=== PATIENT | male | born 1975 ===

== ENCOUNTER 2018-01-14 15:39 | Inpatient (IN) | payer OTHER ==
[2018-01-14] MEDS ORDERED: Magnesium Sulfate 2 gm/50 ml 2 GM/50 ML BAG ONE (16:02)
[2018-01-14] MEDS ORDERED: Magnesium Sulfate 2 gm/50 ml 2 GM/50 ML BAG IVPB ONE (16:23)
[2018-01-14] MEDS: Sodium Chloride 0.9% 1,000 ML IV SCH ×6 (16:30→18:44)
[2018-01-14 16:41] LABS: BASO # 0.1 K/uL (0.0-0.2); BASO % 0.8 % (0.0-2.0); EOS # 0.3 K/uL (0.0-0.7); EOS % 1.8 % (0.0-4.0); HEMOGLOBIN 14.9 g/dL (12.0-18.0); LYMPH # 2.9 K/uL (1.0-4.3); LYMPH % 20.4 % (20.0-40.0); MEAN CORPUSCULAR HEMOGLOBIN 29.8 pg (27.0-31.0); MEAN CORPUSCULAR HGB CONC 33.2 g/dL (33.0-37.0); MEAN PLATELET VOLUME 8.9 fl (7.2-11.7); MONO # 0.8 K/uL (0.0-0.8); MONO % 5.8 % (0.0-10.0); NEUT % 71.2 % (50.0-75.0); NRBC % 0.1 % (0.0-0.0); RED CELL DISTRIBUTION WIDTH 15.8 % (11.5-14.5)
--- NOTE | 2018-01-14 16:59 | ED PDOC ---
HPI: General Adult Time Seen by Provider: 01/14/18 16:39 Chief Complaint (Nursing): Palpitations Additional Complaint(s): 42 y/o M c PMHx HTN, DM p/w palpitations since last night. Patient states he feels nervous. He denies fever, chest pain, or dyspnea. He states he has had similar symptoms in the past and would typically take his HTN medication Losartan and it would resolve but it has happened 3 times since last night. Denies leg swelling, fever, abdominal pain, recent travel. Past Medical History Vital Signs: Last Vital Signs Temp 98.3 F 01/14/18 15:40 Pulse 83 01/14/18 16:43 Resp 16 01/14/18 16:43 BP 96/67 L 01/14/18 16:43 Pulse Ox 100 01/14/18 17:02 - Medical History PMH: Anxiety, Cardiac Aneurysm - Family History Family History: States: No Known Family Hx - Immunization History Hx Tetanus Toxoid Vaccination: No Hx Influenza Vaccination: No Hx Pneumococcal Vaccination: No - Home Medications Home Medications: Ambulatory Orders Medication Instructions Recorded Aspirin [Adult Low Dose Aspirin EC] 81 mg PO DAILY 01/14/18 Glimepiride [amaRYL] 4 mg PO DAILY 01/14/18 Levothyroxine Sodium [Unithroid] 25 mcg PO DAILY 01/14/18 Losartan/Hydrochlorothiazide 1 tab PO DAILY 01/14/18 [Losartan-Hctz 50-12.5 mg Tab] Metformin HCl [Glucophage] 500 mg PO BID 01/14/18 - Allergies Allergies/Adverse Reactions: Allergies Allergy/AdvReac Type Severity Reaction Status Date / Time No Known Allergies Allergy Verified 01/14/18 15:40 Review of Systems ROS Statement: Except As Marked, All Systems Reviewed And Found Negative Constitutional: Negative for: Fever Cardiovascular: Negative for: Chest Pain Physical Exam - Physical Exam Comments: Gen: NAD head: NC/AT Eyes: PERRL ENT: MMM Neck: Supple Chest: No deformity CV: Tachycardic Lungs: CTA b/l Abd: Soft, NT Extremities: No edema Back: No CVA tenderness Skin: No rash Neuro: Alert, no focal deficit - Laboratory Results Result Diagrams: 01/14/18 16:17 01/14/18 16:17 - ECG O2 Sat by Pulse Oximetry: 100 Medical Decision Making Medical Decision Making: EKG SVT 192 bpm, nonspecific ST/T wave changes Adenosine administered, 6, 12, and 12 without any response Cardizem administered 10, which brought rate from 200 to 175, additional 15mg administered, converted to sinus rhythm EKG NSR, regular rate, no ST elevations Started on drip 10mg/hr. Dr. Smart accepts patient to hospitalist service. Disposition - Clinical Impression Clinical Impression: Supraventricular tachycardia - Patient ED Disposition Is Patient to be Admitted: Yes - Disposition Disposition Time: 18:13 Condition: GUARDED Forms: [facility] ([place])
[2018-01-14 17:51] LABS: ALB/GLOB RATIO 1.1 (1.0-2.1); ALBUMIN 4.3 g/dL (3.5-5.0); CALCIUM 8.9 mg/dL (8.4-10.2)
[2018-01-14 18:01] LABS: CK-MB 1.56 ng/mL (0.0-3.38); TROPONIN I 0.072 ng/mL (0.00-0.120)
--- NOTE | 2018-01-14 18:52 | CP.PCM.HP ---
History of Present Illness - History of Present Illness History of Present Illness: 42 yo male with history of HTN and DM2 came in because of palpitation associated with generalized weakness and with throat feeling dry. Denied chest pain, dizziness or SOB. He claimed he had the same episode last night which resolved after about 10 minutes after taking ASA and Losartan. He was admitted 3 yrs ago at [facility] wherein the rapid heart rate was accompanied with confusion but no LOC. After 3 days, he was sent home with Losartan and ASA. As per patient, the only findings after cardiac work ups was HTN. Present on Admission - Present on Admission Any Indicators Present on Admission: No History of DVT/PE: No History of Uncontrolled Diabetes: No Urinary Catheter: No Decubitus Ulcer Present: No Review of Systems - Review of Systems All systems: reviewed and no additional remarkable complaints except (aside from those mentioned above, 12 point system review were negative by me) Past Patient History - Past Medical History & Family History Pertinent Family History: father has HTN mother has DM2 - Past Social History Smoking Status: Light Smoker < 10 Cigarettes Daily Alcohol: < 2 Drinks/Day Drugs: Denies Home Situation {Lives}: With Family - CARDIAC Hx Cardia Arrhythmia: Yes (admitted at [facility] 3 yrs ago because of tachyarrhtymia) Hx Hypertension: Yes - PULMONARY Hx Respiratory Disorders: No - NEUROLOGICAL Hx Neurological Disorder: No - HEENT Hx HEENT Problems: No - RENAL Hx Chronic Kidney Disease: No - ENDOCRINE/METABOLIC Hx Diabetes Mellitus Type 2: Yes - HEMATOLOGICAL/ONCOLOGICAL Hx Blood Disorders: No - INTEGUMENTARY Hx Dermatological Problems: No - MUSCULOSKELETAL/RHEUMATOLOGICAL Hx Musculoskeletal Disorders: No - GASTROINTESTINAL Hx Gastrointestinal Disorders: No - GENITOURINARY/GYNECOLOGICAL Hx Genitourinary Disorders: No - PSYCHIATRIC Hx Anxiety: Yes - SURGICAL HISTORY Hx Surgeries: No - ANESTHESIA Hx Anesthesia: No Meds Allergies/Adverse Reactions: Allergies Allergy/AdvReac Type Severity Reaction Status Date / Time No Known Allergies Allergy Verified 01/14/18 15:40 Physical Exam - Constitutional Appears: No Acute Distress - Head Exam Head Exam: ATRAUMATIC - Eye Exam Eye Exam: absent: Scleral icterus - ENT Exam ENT Exam: Mucous Membranes Moist - Neck Exam Neck exam: Negative for: Meningismus - Respiratory Exam Respiratory Exam: absent: Rales, Rhonchi, Wheezes, Respiratory Distress - Cardiovascular Exam Cardiovascular Exam: REGULAR RHYTHM, +S1, +S2 - GI/Abdominal Exam GI & Abdominal Exam: Soft. absent: Tenderness - Rectal Exam Rectal Exam: Deferred - Extremities Exam Extremities exam: Negative for: calf tenderness, pedal edema - Back Exam Back exam: absent: tenderness - Neurological Exam Neurological exam: Alert, Oriented x3 - Psychiatric Exam Psychiatric exam: Anxious - Skin Skin Exam: Dry, Intact, Pallor Results - Vital Signs Recent Vital Signs: Last Vital Signs Temp 98.3 F 01/14/18 15:40 Pulse 86 01/14/18 18:22 Resp 20 01/14/18 18:22 BP 113/78 01/14/18 18:22 Pulse Ox 100 01/14/18 18:22 - Labs Result Diagrams: 01/14/18 16:17 01/14/18 16:17 Labs: Laboratory Results - last 24 hr 01/14/18 01/14/18 16:17 16:17 WBC 14.0 H RBC 5.00 Hgb 14.9 Hct 45.0 MCV 90.0 MCH 29.8 MCHC 33.2 RDW 15.8 H Plt Count 243 MPV 8.9 Neut % (Auto) 71.2 Lymph % (Auto) 20.4 [place] % (Auto) 5.8 Eos % (Auto) 1.8 Baso % (Auto) 0.8 Neut # (Auto) 10.0 H Lymph # (Auto) 2.9 [place] # (Auto) 0.8 Eos # (Auto) 0.3 Baso # (Auto) 0.1 Sodium 134 Potassium 4.2 Chloride 93 L Carbon Dioxide 21 L Anion Gap 24 H BUN 39 H Creatinine 1.9 H Est GFR ( Amer) 48 Est GFR (Non-Af Amer) 39 Random Glucose 358 H Calcium 8.9 Total Bilirubin 1.6 H AST 78 H ALT 95 H Alkaline Phosphatase 123 Total Creatine Kinase 134 CK-MB (Mass) 1.56 Troponin I 0.0720 NT-Pro-B Natriuret Pep 3030 H Total Protein 8.1 Albumin 4.3 Globulin 3.8 Albumin/Globulin Ratio 1.1 Assessment & Plan - Assessment and Plan (Free Text) Assessment: 42 yo male with history of HTN and DM2 came in because of palpitation associated with generalized weakness and with throat feeling dry. Denied chest pain, dizziness or SOB. He claimed he had the same episode last night which resolved after about 10 minutes after taking ASA and Losartan. He was admitted 3 yrs ago at [facility] wherein the rapid heart rate was accompanied with confusion but no LOC. After 3 days, he was sent home with Losartan and ASA. As per patient, the only findings after cardiac work ups was HTN. 1. SVT continue Cardizem drip at present rate ECHO repeat proBNP cardiology consult with Dr Ramírez 2. Elevated LFTs repeat LFTs in am 3. Renal Insufficiency maybe secondary to dehydration continue IV hydration with NSS 150cc/hr drug screen 4. DM2 BS uncontrolled accuchek ACHS with low Lispro coverage hold Metformin (renal insufficiency) and Amaryl (elevated LFTs) HgA1C, BMP in am 5. HTN BP stable hold Losartan 6. Hypothyroidism TSH in am hold Levothyroxine
[2018-01-14] MEDS: Insulin Lispro (humaLOG) 100 Units/ml Inj SC SCH (23:43)
[2018-01-15 07:42] LABS: BASO # 0.1 K/uL (0.0-0.2); EOS # 0.2 K/uL (0.0-0.7); EOS % 2.1 % (0.0-4.0); HEMOGLOBIN 12.7 g/dL (12.0-18.0); LYMPH # 1.8 K/uL (1.0-4.3); LYMPH % 24.8 % (20.0-40.0); MEAN CELL VOLUME 89.7 fl (80.0-94.0); MEAN CORPUSCULAR HEMOGLOBIN 30.2 pg (27.0-31.0); MEAN CORPUSCULAR HGB CONC 33.7 g/dL (33.0-37.0); MONO # 0.7 K/uL (0.0-0.8); NEUT # 4.6 K/uL (1.8-7.0); NEUT % 63.1 % (50.0-75.0); NRBC % 0.1 % (0.0-0.0); RBC 4.22 Mil/uL (4.40-5.90); RED CELL DISTRIBUTION WIDTH 15.4 % (11.5-14.5); WHITE BLOOD COUNT 7.4 K/uL (4.8-10.8)
[2018-01-15] MEDS: Insulin Lispro (humaLOG) 100 Units/ml Inj SC SCH ×2 (08:25→12:16)
[2018-01-15 08:27] LABS: ALBUMIN 3.5 g/dL (3.5-5.0); BILIRUBIN,DIRECT 0.4 mg/ml (0.0-0.4)
[2018-01-15] MEDS ORDERED: Pantoprazole 40 mg EC Tab PO SCH (09:00)
--- NOTE | 2018-01-15 09:36 | CARD ---
APPROVED REPORT EKG Measurement Heart [id number] <Conclusion> Normal sinus rhythm Nonspecific ST and T wave abnormality Abnormal ECG
--- NOTE | 2018-01-15 09:51 | CARD ---
APPROVED REPORT EKG Measurement Heart [id number] <Conclusion> Supraventricular tachycardia ST & T wave abnormality, consider inferior ischemia Abnormal ECG
--- NOTE | 2018-01-15 10:33 | CP.PCM.CON ---
History of Present Illness - History of Present Illness History of Present Illness: This 42-year-old man, a hypertensive with a history of glucose intolerance and hypothyroidism came to the hospital when extremely rapid heartbeat was detected on his home blood pressure monitoring device. Patient admits that he felt some palpitations at this point but no lightheadedness or sudden shortness of breath is reported. The patient gives history of having had an elevated heart rate recorded the night before as well in the range of 150 bpm but he also says that he was able to go to sleep that night and neck small in when a similar reading was recorded he visited the urgent care center and was sent to the emergency room. He admits to smoking one to 2 cigarettes a week. He has excellent effort tolerance and has never suffered myocardial infarction or chest pain or symptoms of heart failure. He gives history of a similar episode 4 years back when he visited an emergency room and was treated for fast heart beat. There have not been any episodes of lightheadedness or syncope or near syncope in the past. The patient denies any recreational drug use. Physical examination shows a young man who is alert awake weren't afebrile and telemetry shows a steady sinus rhythm at a rate of 74-90 bpm. His blood pressure was 138/88 mmHg. His jugular venous pressure was not elevated and there was no edema hour his lower extremity. The pedal pulses are well felt. There were no carotid bruits. The first and second heart sounds were normal. There was no murmur or gallop there were no rales. His abdomen was soft liver and spleen are not palpable. His electrocardiogram at admission showed evidence of supraventricular tachycardia which subsequent electro-cardiogram shows a return to sinus rhythm with nonspecific ST changes. During his period of tachycardia that are ST-T abnormalities which are resolved upon resumption of sinus rhythm. His lab tests show elevated BUN/creatinine on arrival in the emergency room. His potassium was normal. Impression: Supraventricular tachycardia in a patient who has had a similar episode 4 years back. This most likely represents a concealed conduction pathway. I have recommended that he start taking a beta olga to see if his arrhythmia is controlled at the same time as his blood pressure is managed. I have informed him that an option of ablation procedure exists if he requires it. His repeat lab tests should be checked to see if his azotemia has resolved with return to sinus rhythm. Once that happens she will be allowed to return home and be managed as an outpatient. Elevated troponin her present response to severe tachycardia. The patient has been taking aspirin on a regular basis which he should continue. Past Patient History - Past Medical History & Family History Past Medical History?: Yes - Past Social History Smoking Status: Light Smoker < 10 Cigarettes Daily - CARDIAC Hx Cardiac Disorders: Yes Hx Atrial Fibrillation: Yes Hx Hypertension: Yes - PULMONARY Hx Respiratory Disorders: No - NEUROLOGICAL Hx Neurological Disorder: No - HEENT Hx HEENT Problems: No - RENAL Hx Chronic Kidney Disease: Yes - ENDOCRINE/METABOLIC Hx Endocrine Disorders: Yes Hx Diabetes Mellitus Type 2: Yes - HEMATOLOGICAL/ONCOLOGICAL Hx Blood Disorders: No Hx AIDS: No Hx Human Immunodeficiency Virus (HIV): No - INTEGUMENTARY Hx Dermatological Problems: No - MUSCULOSKELETAL/RHEUMATOLOGICAL Hx Musculoskeletal Disorders: No Hx Falls: No - GASTROINTESTINAL Hx Gastrointestinal Disorders: No - GENITOURINARY/GYNECOLOGICAL Hx Genitourinary Disorders: No - PSYCHIATRIC Hx Psychophysiologic Disorder: Yes Hx Anxiety: Yes Hx Substance Use: No - SURGICAL HISTORY Hx Surgeries: No - ANESTHESIA Hx Anesthesia: No Hx Anesthesia Reactions: No Meds Allergies/Adverse Reactions: Allergies Allergy/AdvReac Type Severity Reaction Status Date / Time No Known Allergies Allergy Verified 01/14/18 15:40 - Medications Medications: Current Medications Aspirin (Ecotrin) 81 mg PO DAILY [facility] Last Admin: 01/15/18 08:25 Dose: 81 mg Atorvastatin Calcium (Lipitor) 20 mg PO HS [facility] Sodium Chloride (Sodium Chloride 0.9%) 1,000 mls @ 1,000 mls/hr IV .Q1H [facility] Stop: 01/15/18 16:23 Last Admin: 01/14/18 18:44 Dose: Not Given Sodium Chloride (Sodium Chloride 0.9%) 1,000 mls @ 1,000 mls/hr IV .Q1H [facility] Stop: 01/15/18 16:23 Last Admin: 01/14/18 18:43 Dose: Not Given Insulin Human Lispro (Humalog) 0 units SC ACHS [facility] PRN Reason: Protocol Last Admin: 01/15/18 08:25 Dose: 2 units Insulin Human Lispro (Humalog) 2 units SC AC [facility] Metoprolol Tartrate (Lopressor) 25 mg PO Q12 [facility] Pantoprazole Sodium (Protonix Ec Tab) 40 mg PO DAILY [facility] Last Admin: 01/15/18 08:25 Dose: 40 mg Results - Vital Signs Recent Vital Signs: Last Vital Signs Temp 98.3 F 01/15/18 08:00 Pulse 79 01/15/18 08:00 Resp 18 01/15/18 08:00 BP 118/78 01/15/18 08:00 Pulse Ox 100 01/15/18 08:00 - Labs Result Diagrams: 01/15/18 06:45 01/14/18 16:17 Labs: Laboratory Results - last 24 hr 01/14/18 01/14/18 01/14/18 16:17 16:17 16:43 WBC 14.0 H RBC 5.00 Hgb 14.9 Hct 45.0 MCV 90.0 MCH 29.8 MCHC 33.2 RDW 15.8 H Plt Count 243 MPV 8.9 Neut % (Auto) 71.2 Lymph % (Auto) 20.4 [place] % (Auto) 5.8 Eos % (Auto) 1.8 Baso % (Auto) 0.8 Neut # (Auto) 10.0 H Lymph # (Auto) 2.9 [place] # (Auto) 0.8 Eos # (Auto) 0.3 Baso # (Auto) 0.1 APTT Sodium 134 Potassium 4.2 Chloride 93 L Carbon Dioxide 21 L Anion Gap 24 H BUN 39 H Creatinine 1.9 H Est GFR ( Amer) 48 Est GFR (Non-Af Amer) 39 POC Glucose (mg/dL) Random Glucose 358 H Calcium 8.9 Phosphorus 3.9 Magnesium 1.9 Total Bilirubin 1.6 H Direct Bilirubin AST 78 H ALT 95 H Alkaline Phosphatase 123 Total Creatine Kinase 134 CK-MB (Mass) 1.56 Troponin I 0.0720 NT-Pro-B Natriuret Pep 3030 H Total Protein 8.1 Albumin 4.3 Globulin 3.8 Albumin/Globulin Ratio 1.1 TSH 3rd Generation 01/14/18 01/15/18 01/15/18 21:51 05:19 06:45 WBC 7.4 RBC 4.22 L Hgb 12.7 D Hct 37.9 MCV 89.7 MCH 30.2 MCHC 33.7 RDW 15.4 H Plt Count 151 MPV 9.0 Neut % (Auto) 63.1 Lymph % (Auto) 24.8 [place] % (Auto) 9.0 Eos % (Auto) 2.1 Baso % (Auto) 1.0 Neut # (Auto) 4.6 Lymph # (Auto) 1.8 [place] # (Auto) 0.7 Eos # (Auto) 0.2 Baso # (Auto) 0.1 APTT Sodium Potassium Chloride Carbon Dioxide Anion Gap BUN Creatinine Est GFR ( Amer) Est GFR (Non-Af Amer) POC Glucose (mg/dL) 241 H 222 H Random Glucose Calcium Phosphorus Magnesium Total Bilirubin Direct Bilirubin AST ALT Alkaline Phosphatase Total Creatine Kinase CK-MB (Mass) Troponin I NT-Pro-B Natriuret Pep Total Protein Albumin Globulin Albumin/Globulin Ratio TSH 3rd Generation 01/15/18 01/15/18 01/15/18 06:45 07:35 08:30 WBC RBC Hgb Hct MCV MCH MCHC RDW Plt Count MPV Neut % (Auto) Lymph % (Auto) [place] % (Auto) Eos % (Auto) Baso % (Auto) Neut # (Auto) Lymph # (Auto) [place] # (Auto) Eos # (Auto) Baso # (Auto) APTT 32.3 Sodium Potassium Chloride Carbon Dioxide Anion Gap BUN Creatinine Est GFR ( Amer) Est GFR (Non-Af Amer) POC Glucose (mg/dL) Random Glucose Calcium Phosphorus Magnesium Total Bilirubin 1.3 Direct Bilirubin 0.4 AST 57 ALT 79 H Alkaline Phosphatase 84 Total Creatine Kinase CK-MB (Mass) Troponin I 0.1990 H* NT-Pro-B Natriuret Pep Total Protein 7.0 Albumin 3.5 Globulin 3.5 Albumin/Globulin Ratio 1.0 [facility] 3rd Generation 1.87
[2018-01-15 11:00] LABS: ALBUMIN 4.1 g/dL (3.5-5.0); ALT/SGPT 87 U/L (21-72); AST/SGOT 69 U/L (17-59); BLOOD UREA NITROGEN 29 mg/dl (9-20); CALCIUM 8.8 mg/dL (8.4-10.2); GFR AFRICAN-AMERICAN > 60; GFR NON-AFRICAN AMERICAN > 60; HDL CHOLESTEROL 44 MG/DL (30-70)
[2018-01-15 11:04] LABS: LDL CHOLESTEROL 96 mg/dL (0-129)
[2018-01-15] MEDS ORDERED: GlipiZIDE 10 mg SR Tab PO SCH (11:30)
[2018-01-15] MEDS ORDERED: Insulin Lispro (humaLOG) 100 Units/ml Inj SC SCH (11:30)
--- NOTE | 2018-01-15 11:34 | RAD ---
HISTORY: palpitations COMPARISON: No prior. FINDINGS: LUNGS: No active pulmonary disease. PLEURA: No significant pleural effusion identified, no pneumothorax apparent. CARDIOVASCULAR: Normal. OSSEOUS STRUCTURES: No significant abnormalities. VISUALIZED UPPER ABDOMEN: Normal. OTHER FINDINGS: None. IMPRESSION: No active disease.
[2018-01-15 12:13] VITALS: O2SAT 98
[2018-01-15 16:10] VITALS: BP 131/90; PULSE 80; RESP 20; TEMP 97.5
--- NOTE | 2018-01-15 16:36 | CP.PCM.DIS ---
Provider - Provider Date of Admission: 01/14/18 18:08 Attending physician: Parrish Zuñiga MD Consults: Dr Roberts Time Spent in preparation of Discharge (in minutes): 25 Diagnosis - Discharge Diagnosis (1) Supraventricular tachycardia Status: Acute Comment: continue Metoprolol 25mg PO BID instead of Lozartan/HCTZ (2) Elevated LFTs Status: Acute Comment: resolved after rhythm converted to normal sinus (3) Renal insufficiency Status: Acute Comment: resolved after rhythm converted to normal sinus (4) DM2 (diabetes mellitus, type 2) Status: Chronic Comment: resume Amaryl and Metformin (5) HTN (hypertension) Status: Chronic Comment: BP stable. continue Metoprolol 25mg PO BID Hospital Course - Lab Results Lab Results: Most Recent Lab Values WBC 7.4 K/uL (4.8-10.8) 01/15/18 06:45 RBC 4.22 Mil/uL (4.40-5.90) L 01/15/18 06:45 Hgb 12.7 g/dL (12.0-18.0) D 01/15/18 06:45 Hct 37.9 % (35.0-51.0) 01/15/18 06:45 MCV 89.7 fl (80.0-94.0) 01/15/18 06:45 MCH 30.2 pg (27.0-31.0) 01/15/18 06:45 MCHC 33.7 g/dL (33.0-37.0) 01/15/18 06:45 RDW 15.4 % (11.5-14.5) H 01/15/18 06:45 Plt Count 151 K/uL (130-400) 01/15/18 06:45 MPV 9.0 fl (7.2-11.7) 01/15/18 06:45 Neut % (Auto) 63.1 % (50.0-75.0) 01/15/18 06:45 Lymph % (Auto) 24.8 % (20.0-40.0) 01/15/18 06:45 [place] % (Auto) 9.0 % (0.0-10.0) 01/15/18 06:45 Eos % (Auto) 2.1 % (0.0-4.0) 01/15/18 06:45 Baso % (Auto) 1.0 % (0.0-2.0) 01/15/18 06:45 Neut # (Auto) 4.6 K/uL (1.8-7.0) 01/15/18 06:45 Lymph # (Auto) 1.8 K/uL (1.0-4.3) 01/15/18 06:45 [place] # (Auto) 0.7 K/uL (0.0-0.8) 01/15/18 06:45 Eos # (Auto) 0.2 K/uL (0.0-0.7) 01/15/18 06:45 Baso # (Auto) 0.1 K/uL (0.0-0.2) 01/15/18 06:45 APTT 32.3 Seconds (25.6-37.1) 01/15/18 07:35 Sodium 138 mmol/l (132-148) 01/15/18 10:30 Potassium 4.1 MMOL/L (3.6-5.0) 01/15/18 10:30 Chloride 97 mmol/L (98-107) L 01/15/18 10:30 Carbon Dioxide 22 mmol/L (22-30) 01/15/18 10:30 Anion Gap 23 (10-20) H 01/15/18 10:30 BUN 29 mg/dl (9-20) H 01/15/18 10:30 Creatinine 1.1 mg/dl (0.8-1.5) 01/15/18 10:30 Est GFR ( Amer) > 60 01/15/18 10:30 Est GFR (Non-Af Amer) > 60 01/15/18 10:30 POC Glucose (mg/dL) 325 mg/dL (65-110) H 01/15/18 11:03 Random Glucose 199 mg/dL (75-110) H 01/15/18 10:30 Calcium 8.8 mg/dL (8.4-10.2) 01/15/18 10:30 Phosphorus 3.9 mg/dl (2.5-4.5) 01/14/18 16:43 Magnesium 1.9 MG/DL (1.6-2.3) 01/14/18 16:43 Total Bilirubin 1.5 mg/dl (0.2-1.3) H 01/15/18 10:30 Direct Bilirubin 0.4 mg/ml (0.0-0.4) 01/15/18 06:45 AST 69 U/L (17-59) H D 01/15/18 10:30 ALT 87 U/L (21-72) H 01/15/18 10:30 Alkaline Phosphatase 98 U/L (38-126) 01/15/18 10:30 Total Creatine Kinase 134 U/L (55-170) 01/14/18 16:17 CK-MB (Mass) 1.56 ng/mL (0.0-3.38) 01/14/18 16:17 Troponin I 0.1330 ng/mL (0.00-0.120) H* 01/15/18 14:01 NT-Pro-B Natriuret Pep 3030 pg/ml (0-450) H 01/14/18 16:17 Total Protein 8.1 G/DL (6.3-8.2) 01/15/18 10:30 Albumin 4.1 g/dL (3.5-5.0) 01/15/18 10:30 Globulin 4.0 gm/dL (2.2-3.9) H 01/15/18 10:30 Albumin/Globulin Ratio 1.0 (1.0-2.1) 01/15/18 10:30 Triglycerides 173 mg/DL (0-149) H 01/15/18 10:30 Cholesterol 185 mg/dL (0-199) 01/15/18 10:30 LDL Cholesterol Direct 96 mg/dL (0-129) 01/15/18 10:30 HDL Cholesterol 44 MG/DL (30-70) 01/15/18 10:30 TSH 3rd Generation 1.87 mIU/ML (0.46-4.68) 01/15/18 06:45 - Hospital Course Hospital Course: 42 yo male with history of HTN and DM2 seen in the ER because of palpitation associated with generalized weakness and throat feeling dry. Patient denied chest pain or SOB. EKG was done and showed SVT. He was given 3 doses of Adenosine (6mg initially, then followed with 2 doses of 12mg) but had no effect. He was then given an IV bolus of 10mg of Cardizem which broke the SVT followed with 10mg/hr Cardizem IV drip. Patient remained in sinus even after the drip was DC. The 2nd set of Troponin was elevated and so was the 3rd set but it was trending down. Dr Roberts, cardiology consult deduced that the enzyme elevation was not secondary to coronary insufficiency but because of the effect of the temporary reduced cardiac output caused by SVT. LFTs and BUN/creatinine came back to normal range on repeat testing. Patient was put on BB to maintain his HR and BP to normal range. Patient was discharged in stable condition and advised follow up with his PCP. Discharge Exam - Head Exam Head Exam: ATRAUMATIC - Eye Exam Eye Exam: absent: Scleral icterus - ENT Exam ENT Exam: Mucous Membranes Moist - Respiratory Exam Respiratory Exam: absent: Rales, Rhonchi, Wheezes, Respiratory Distress - Cardiovascular Exam Cardiovascular Exam: REGULAR RHYTHM, +S1, +S2 - GI/Abdominal Exam GI & Abdominal Exam: Soft. absent: Tenderness - Rectal Exam Rectal Exam: Deferred - Neurological Exam Neurological exam: Alert, Oriented x3 - Psychiatric Exam Psychiatric exam: Normal Affect - Skin Skin Exam: Dry, Intact Discharge Plan - Discharge Medications Prescriptions: Metoprolol Tartrate [Lopressor] 25 mg PO Q12 #60 tab - Follow Up Plan Condition: GUARDED Disposition: HOME/ ROUTINE Instructions: Supraventricular Tachycardia (SVT)
== END 2018-01-15 16:15 | disposition home or self-care (01) | DRG 138 ==
LOC: H.ER 15:39 → H.TEL 18:08
DX: I47.1 Supraventricular tachycardia (principal); E11.22 Type 2 diabetes mellitus with diabetic chronic kidney disease; N18.9 Chronic kidney disease, unspecified; E11.65 Type 2 diabetes mellitus with hyperglycemia; E86.0 Dehydration; R79.89 Other specified abnormal findings of blood chemistry; I12.9 Hypertensive chronic kidney disease with stage 1 through stage 4 chronic kidney disease, or unspecified chronic kidney disease; E03.9 Hypothyroidism, unspecified; F17.210 Nicotine dependence, cigarettes, uncomplicated; I48.91 Unspecified atrial fibrillation